=== PATIENT | female | born 1960 | race African-American/Black ===

== ENCOUNTER 2020-06-01 11:53 | Emergency (ER) | payer OTHER ==
[~2020-06-01] VITALS: Ht 180.3 cm; Wt 58.0 kg
[2020-06-01] MEDS ORDERED: SODIUM CHLORIDE 0.9% 1,000 ML IV ONE (12:30)
[2020-06-01 12:46] LABS: CHLORIDE 104 mEq/L (98-107)
[2020-06-01 12:48] LABS: BASOPHILS % 0.6 % (0.0-2.0); EOSINOPHILS % 6.9 % (0.0-5.0); HEMOGLOBIN. 14.8 g/dL (12.0-16.0); LYMPHOCYTES % 53.6 % (20.0-50.0); MEAN CORPUSCULAR HEMOGLOBIN 29.8 pg (28.0-32.0); MEAN CORPUSCULAR VOLUME 90.6 fL (81.0-99.0); MEAN PLATELET VOLUME 10.2 fl (7.4-10.4); MONOCYTES % 9.5 % (2.0-8.0); NEUTROPHILS % 29.4 % (40.0-76.0); PLATELET 153 x1000/uL (130-400); RED BLOOD CELL COUNT 4.97 mill/uL (4.2-5.4); RED CELL DISTRIBUTION WIDTH 13.2 % (11.6-14.6)
[2020-06-01] MEDS ORDERED: MAGNESIUM HYDROXIDE 400MG/5ML 30ML UDC PO ONE (13:45)
[2020-06-01] MEDS ORDERED: MAGNESIUM CITRATE 300ML SOLUTION PO ONE (13:45)
[2020-06-01 15:58] VITALS: BP 142/86
== END 2020-06-01 15:59 | disposition home or self-care (01) ==
LOC: ER 11:53
DX: R10.9 Unspecified abdominal pain (principal); K59.00 Constipation, unspecified
CPT/HCPCS: 36415; 74176; 80053; 83690; 85025; 93005; 96360; 96361; 99285; J7030

== ENCOUNTER 2021-05-01 14:29 | Emergency (ER) | payer OTHER ==
[~2021-05-01] VITALS: Ht 185.4 cm; Wt 105.0 kg
[2021-05-01] MEDS ORDERED: IBUPROFEN 800MG TABLET PO ONE (15:00)
[2021-05-01] MEDS ORDERED: IBUP-2030 MT (16:02)
[2021-05-01 16:46] VITALS: BP 149/71
== END 2021-05-01 16:47 | disposition home or self-care (01) ==
LOC: ER 14:29
DX: S43.401A Unspecified sprain of right shoulder joint, initial encounter (principal); E11.9 Type 2 diabetes mellitus without complications; X58.XXXA Exposure to other specified factors, initial encounter; Y93.89 Activity, other specified; Y92.013 Bedroom of single-family (private) house as the place of occurrence of the external cause
CPT/HCPCS: 73030; 99283